=== PATIENT | male | born 1955 | race Hispanic/Latino ===

== ENCOUNTER 2024-04-19 22:18 | Inpatient (IN) | payer MEDICARE ==
[~2024-04-19] VITALS: Ht 177.8 cm; Wt 80.3 kg
[2024-04-19] MEDS: ONDANSETRON HCL INJ 2MG/ML 2ML 2 MG/ML VIAL IV STA (23:14)
[2024-04-19] MEDS: SODIUM CHLORIDE 0.9% 1000ML 1,000 ML IV ONE (23:15)
[2024-04-19] MEDS: ACETAMINOPHEN 325 MG TAB PO ONE (23:16)
[2024-04-19 23:46] LABS: CLARITY,URINE SL CLOUDY (CLEAR); COLOR,URINE ORANGE (YELLOW)
[2024-04-19 23:47] LABS: BASOPHILS # (AUTO) 0.1 (0.0-0.1); BASOPHILS % 0.3 % (0.0-1.0); BILIRUBIN,URINE NEGATIVE (NEGATIVE); GLUCOSE, URINE 1+ (NEGATIVE); HEMATOCRIT 36.4 % (38.2-49.6); HEMOGLOBIN 13.2 g/dL (14.0-18.0); KETONES,URINE >=160 (NEGATIVE); LEUKOCYTE ESTERASE ,URINE SMALL (NEGATIVE); LYMPHOCYTES # (AUTO) 0.5 (1.0-3.2); LYMPHOCYTES % 2.7 % (18.0-39.1); MEAN CORPUSCULAR HEMOGLOBIN 32.3 pg (28-32); MEAN CORPUSCULAR HGB CONC 36.3 g/dL (31-35); MONOCYTES # (AUTO) 1.8 (0.2-0.8); MONOCYTES % 10.6 % (4.4-11.3); NEUTROPHILS # (AUTO) 14.2 (2.1-6.9); NEUTROPHILS % 85.7 % (38.7-80.0); NITRITE,URINE POSITIVE (NEGATIVE); PH,URINE 5 (5 - 7); PLATELET COUNT 207 x10e3/uL (140-360); PROTEIN,URINE DIPSTICK 2+ (NEGATIVE); RED BLOOD COUNT 4.09 x10e6/uL (4.3-5.7); URINE UROBILINOGEN 1 mg/dL (0.2 - 1); WHITE BLOOD COUNT 16.54 x10e3/uL (4.8-10.8)
[2024-04-19 23:57] LABS: CORONAVIRUS COVID-19 AG NEGATIVE (NEGATIVE); INFLUENZA A AG NEGATIVE (NEGATIVE); INFLUENZA B AG NEGATIVE (NEGATIVE)
[2024-04-19 23:58] LABS: ALBUMIN 3.9 g/dL (3.5-5.0); ALBUMIN/GLOBULIN RATIO 1.3 (0.8-2.0); ANION GAP 16.6 mmol/L (8-16); BILIRUBIN,TOTAL 1.4 mg/dL (0.2-1.2); CALCIUM 8.8 mg/dL (8.4-10.2); CREATININE, SERUM 0.96 mg/dL (0.72-1.25); POTASSIUM 3.6 mmol/L (3.5-5.1); TOTAL PROTEIN 6.9 g/dL (6.5-8.1)
[2024-04-20] VITALS (13 sets, daily range): BP systolic 109–149; BP diastolic 67–90; PULSE 81–122; RESP 18–20; TEMP 98.3–103.1; O2SAT 95–100
[2024-04-20 00:06] LABS: BACTERIA,URINE MANY /HPF; EPITHELIAL CELLS,URINE FEW /LPF; WBC,URINE (MAN) >50 /HPF (0-5)
[2024-04-20] MEDS ORDERED: ONDANSETRON HCL INJ 2MG/ML 2ML 2 MG/ML VIAL IV PRN ×2 (02:15→10:00)
[2024-04-20] MEDS ORDERED: Morphine 4mg INJECTION 4 MG/ML INJ IV PRN (02:15)
[2024-04-20] MEDS: SODIUM CHLORIDE 0.9% 1000ML 1,000 ML IV SCH (04:30)
[2024-04-20] MEDS: ACETAMINOPHEN 325 MG TAB PO PRN (08:05)
[2024-04-20] MEDS ORDERED: MELATONIN 5 MG TABLET PO PRN (10:00)
[2024-04-20] MEDS ORDERED: ALBUTEROL/IPRATROPIUM 3 ML NEB NEB PRN (10:00)
[2024-04-20] MEDS ORDERED: LIDOCAINE 4% PATCH TP PRN (10:00)
[2024-04-20] MEDS ORDERED: POTASSIUM CHLORIDE 20 MEQ TAB CR PO PRN (10:00)
[2024-04-20] MEDS ORDERED: HYDRALAZINE HCL 20 MG/ML VIAL IV PRN (10:00)
[2024-04-20] MEDS ORDERED: BENZONATATE 100 MG CAP PO PRN (10:00)
[2024-04-20] MEDS ORDERED: DIPHENHYDRAMINE HCL 25 MG CAP PO PRN (10:00)
[2024-04-20] MEDS ORDERED: DEXTROSE 50% SYRINGE 50 ML IV PRN (10:00)
[2024-04-20] MEDS ORDERED: SIMETHICONE 80 MG CHEW PO PRN (10:00)
[2024-04-20] MEDS ORDERED: POLYETHYLENE GLYCOL 3350 17 GM PACK PO PRN (10:00)
[2024-04-20] MEDS ORDERED: DOCUSATE SODIUM 100 MG CAP PO PRN (10:00)
[2024-04-20] MEDS: SODIUM CHLORIDE 0.9% 1000ML 1,000 ML IV ONE (10:43)
[2024-04-20] MEDS: IBUPROFEN 600 MG TAB PO PRN (11:38)
[2024-04-20] MEDS: TAMSULOSIN HCL 0.4 MG CAP PO ONE (16:58)
[2024-04-20] MEDS: ENOXAPARIN SOD INJ 40 MG/0.4 ML SYR SC SCH (16:59)
[2024-04-20] MEDS ORDERED: ENOXAPARIN SOD INJ 40 MG/0.4 ML SYR SC SCH (17:00)
[2024-04-20] MEDS: TAMSULOSIN HCL 0.4 MG CAP PO SCH (21:00)
[2024-04-21] VITALS (10 sets, daily range): BP systolic 111–151; BP diastolic 55–82; PULSE 80–104; RESP 17–19; TEMP 97.8–102.1; O2SAT 94–99
[2024-04-21 06:08] LABS: BASOPHILS % 0.3 % (0.0-1.0); EOSINOPHILS # (AUTO) 0.1 (0.0-0.4); EOSINOPHILS % 0.6 % (0.0-6.0); HEMATOCRIT 32.9 % (38.2-49.6); HEMOGLOBIN 11.5 g/dL (14.0-18.0); LYMPHOCYTES # (AUTO) 0.6 (1.0-3.2); LYMPHOCYTES % 4.3 % (18.0-39.1); MEAN CORPUSCULAR HEMOGLOBIN 31.9 pg (28-32); MEAN CORPUSCULAR VOLUME 91.1 fL (81-99); MONOCYTES # (AUTO) 1.7 (0.2-0.8); MONOCYTES % 12.6 % (4.4-11.3); NEUTROPHILS # (AUTO) 11.2 (2.1-6.9); NEUTROPHILS % 81.3 % (38.7-80.0); PLATELET COUNT 150 x10e3/uL (140-360); RED BLOOD COUNT 3.61 x10e6/uL (4.3-5.7); RED CELL DISTRIBUTION WIDTH 12.3 % (11.7-14.4); WHITE BLOOD COUNT 13.73 x10e3/uL (4.8-10.8)
[2024-04-21 06:45] LABS: ALBUMIN 2.7 g/dL (3.5-5.0); ANION GAP 10.7 mmol/L (8-16); BILIRUBIN,TOTAL 0.8 mg/dL (0.2-1.2); CREATININE, SERUM 0.83 mg/dL (0.72-1.25); POTASSIUM 3.7 mmol/L (3.5-5.1); TOTAL PROTEIN 5.3 g/dL (6.5-8.1)
[2024-04-21] MEDS: PANTOPRAZOLE SOD 40 MG TABEC PO SCH (08:31)
[2024-04-22] VITALS (9 sets, daily range): BP systolic 119–150; BP diastolic 71–87; PULSE 59–88; RESP 18–20; TEMP 98.6–101; O2SAT 93–97
[2024-04-22 05:59] LABS: BASOPHILS % 0.3 % (0.0-1.0); EOSINOPHILS # (AUTO) 0.2 (0.0-0.4); EOSINOPHILS % 1.6 % (0.0-6.0); HEMATOCRIT 32.9 % (38.2-49.6); HEMOGLOBIN 11.7 g/dL (14.0-18.0); LYMPHOCYTES # (AUTO) 0.5 (1.0-3.2); LYMPHOCYTES % 4.8 % (18.0-39.1); MEAN CORPUSCULAR HEMOGLOBIN 32.3 pg (28-32); MEAN CORPUSCULAR HGB CONC 35.6 g/dL (31-35); MEAN CORPUSCULAR VOLUME 90.9 fL (81-99); MONOCYTES # (AUTO) 1.5 (0.2-0.8); MONOCYTES % 16.4 % (4.4-11.3); NEUTROPHILS # (AUTO) 7.2 (2.1-6.9); NEUTROPHILS % 76.5 % (38.7-80.0); PLATELET COUNT 160 x10e3/uL (140-360); RED BLOOD COUNT 3.62 x10e6/uL (4.3-5.7); RED CELL DISTRIBUTION WIDTH 12.3 % (11.7-14.4)
[2024-04-22 06:24] LABS: ANION GAP 10.6 mmol/L (8-16); CALCIUM 7.9 mg/dL (8.4-10.2); CREATININE, SERUM 0.8 mg/dL (0.72-1.25); POTASSIUM 3.6 mmol/L (3.5-5.1)
[2024-04-22] MEDS ORDERED: FLOMAX0.4 MG PO (10:54)
[2024-04-22] MEDS: TAMSULOSIN HCL 0.4 MG CAP PO SCH (20:37)
[2024-04-23 03:34] VITALS: BP 142/88; PULSE 59; RESP 18; TEMP 97.7; O2SAT 93
[2024-04-23 04:11] VITALS: BP 142/88; PULSE 59; RESP 18; TEMP 97.7; O2SAT 93
[2024-04-23 06:23] LABS: BASOPHILS % 0.7 % (0.0-1.0); EOSINOPHILS # (AUTO) 0.3 (0.0-0.4); EOSINOPHILS % 5.5 % (0.0-6.0); HEMATOCRIT 33.7 % (38.2-49.6); HEMOGLOBIN 11.9 g/dL (14.0-18.0); LYMPHOCYTES # (AUTO) 0.5 (1.0-3.2); LYMPHOCYTES % 8.8 % (18.0-39.1); MEAN CORPUSCULAR HGB CONC 35.3 g/dL (31-35); MEAN CORPUSCULAR VOLUME 90.6 fL (81-99); MONOCYTES # (AUTO) 1.4 (0.2-0.8); MONOCYTES % 24.6 % (4.4-11.3); NEUTROPHILS # (AUTO) 3.5 (2.1-6.9); NEUTROPHILS % 60.1 % (38.7-80.0); PLATELET COUNT 187 x10e3/uL (140-360); RED BLOOD COUNT 3.72 x10e6/uL (4.3-5.7); RED CELL DISTRIBUTION WIDTH 12.2 % (11.7-14.4); WHITE BLOOD COUNT 5.78 x10e3/uL (4.8-10.8)
[2024-04-23 06:54] LABS: ANION GAP 12.8 mmol/L (8-16); CALCIUM 8.3 mg/dL (8.4-10.2); CREATININE, SERUM 0.77 mg/dL (0.72-1.25); POTASSIUM 3.8 mmol/L (3.5-5.1)
[2024-04-23 07:40] VITALS: PULSE 82; RESP 20; O2SAT 95
[2024-04-23 08:00] VITALS: BP 142/88; PULSE 82; RESP 20; TEMP 97.7; O2SAT 95
[2024-04-23 08:35] VITALS: BP 127/89; PULSE 93; RESP 20; TEMP 98.4; O2SAT 96
[2024-04-23 09:25] LABS: EOSINOPHILS % (MANUAL) 5 % (0-7); LYMPHOCYTES % (MANUAL) 14 % (19-48); MONOCYTES % (MANUAL) 23 % (3.4-9.0); NEUTROPHILS % (MANUAL) 58 % (40-74)
[2024-04-23 09:26] LABS: PLATELET ESTIMATE ADEQUATE; PLATELET MORPHOLOGY COMMENT NORMAL; RBC MORPHOLOGY COMMENT NORMAL
[2024-04-23] MEDS ORDERED: CEPHALEXIN500 MG PO (13:33)
[2024-04-23 13:41] VITALS: BP 134/82; PULSE 71; RESP 18; TEMP 98.7; O2SAT 98
== END 2024-04-23 15:33 | disposition home or self-care (01) | DRG 872 ==
LOC: ER 22:25 → ERHOLD 04-20 02:12 → MED/SURG3 04-20 02:56
PROVIDERS: ADMIT Internal Medicine; ATTEND Internal Medicine
PROC: 3E0333Z Introduction of Anti-inflammatory into Peripheral Vein, Percutaneous Approach (ICD-10-PCS; principal; 2024-04-19)
DX: A41.51 Sepsis due to Escherichia coli [E. coli] (principal); N12 Tubulo-interstitial nephritis, not specified as acute or chronic; N39.0 Urinary tract infection, site not specified; N40.0 Benign prostatic hyperplasia without lower urinary tract symptoms; K80.20 Calculus of gallbladder without cholecystitis without obstruction; M19.90 Unspecified osteoarthritis, unspecified site; Z11.52 Encounter for screening for COVID-19
CPT/HCPCS: 36415; 71045; 74176; 80048; 80053; 81001; 83605; 83735; 84484; 85025; 87040; 87086; 87186; 93005; 94799; 99284; J0696; J1650; J2185; J2405; J7030